=== PATIENT | female | born 1960 | race Caucasian/White ===

== ENCOUNTER 2017-01-29 07:16 | Day surgery (SDC) | payer MEDICARE, OTHER ==
[2017-01-29 07:38] VITALS: BMI 26.2
[2017-01-29] MEDS ORDERED: LIDOCAINE HCL/PF 2% SDV 5ML VIAL ONE (08:27)
[2017-01-29] MEDS ORDERED: PROPOFOL 20 ML ONE ×3 (08:27)
[2017-01-29 08:28] VITALS: TEMP 97.5
[2017-01-29 09:30] VITALS: BP 112/66; PULSE 76
== END 2017-01-29 09:30 | disposition home or self-care (01) ==
LOC: JASU-ENDO 07:16
PROVIDERS: ATTEND Internal Medicine Gastroenterology
PROC: 0DJD8ZZ Inspection of Lower Intestinal Tract, Via Natural or Artificial Opening Endoscopic (ICD-10-PCS; principal; 2017-01-29 08:00)
DX: Z12.11 Encounter for screening for malignant neoplasm of colon (principal)
CPT/HCPCS: 84703

== ENCOUNTER 2017-03-12 06:52 | Day surgery (SDC) | payer MEDICARE, OTHER ==
[2017-03-12 07:45] VITALS: BMI 26.2
[2017-03-12] MEDS ORDERED: PROPOFOL 20 ML ONE ×3 (07:55)
[2017-03-12] MEDS ORDERED: LIDOCAINE HCL/PF 2% SDV 5ML VIAL ONE (07:55)
[2017-03-12 08:35] VITALS: TEMP 97.9
[2017-03-12 08:58] VITALS: PULSE 65
[2017-03-12 09:38] VITALS: BP 134/79
--- NOTE | 2017-03-13 12:19 | PATH ---
Surgical Pathology Report Patient Name: KARL CHARLTON [facility] Rec. #: [id number] /Age/Gender: 1960 (Age: 56) / F Account: [id number] Location: [facility]-ENDOSCOPY Taken: 03/12/2017 Received: 03/12/2017 Reported: 03/13/2017 Physicians: Sukhjinder Townsend M.D. Specimen(s) Received BX ANTRUM Clinical History Chronic abdominal pain Gastritis Final Diagnosis STOMACH, ANTRUM, BIOPSY: GASTRIC ANTRAL AND OXYNTIC MUCOSA WITH MODERATE CHRONIC GASTRITIS AND MILD REACTIVE GASTROPATHY. IMMUNOSTAIN FOR H. PYLORI IS NEGATIVE FOR ORGANISMS. Electronically Signed Karl Mullins M.D. Gross Description Received in formalin, labeled "biopsy antrum" are 3 sandoval, irregular portions of soft tissue ranging from 0.2-0.7 cm in greatest dimension. The specimens are submitted in toto in one cassette. /03/12/201703/12/2017
== END 2017-03-12 09:20 | disposition home or self-care (01) ==
LOC: JASU-ENDO 06:52
PROVIDERS: ATTEND Internal Medicine Gastroenterology
PROC: 0DB68ZX Excision of Stomach, Via Natural or Artificial Opening Endoscopic, Diagnostic (ICD-10-PCS; principal; 2017-03-12 08:00)
DX: K29.60 Other gastritis without bleeding (principal)
CPT/HCPCS: 88305-TC; 88342-TC